=== PATIENT | female | born 1950 | race Caucasian/White ===

== ENCOUNTER → 2017-12-24 09:48 | Outpatient (CLI) | payer OTHER, SELFPAY ==
[2017-12-24 11:52] LABS: Alanine Aminotransferase 39 IU/L (9-52); Albumin 4.4 g/dL (3.5-5.0); Albumin Globulin Ratio 1.7 (1.0-2.8); Alkaline Phosphatase 78 U/L (38-126); Aspartate Aminotransferase 34 IU/L (14-36); BUN Creatinine Ratio 25.6 (6-22); Bilirubin Total 0.6 mg/dL (0.2-1.3); Blood Urea Nitrogen 23 mg/dL (7-17); Calcium 9.2 mg/dL (8.4-10.2); Carbon Dioxide 29 mmol/L (22-32); Chloride 103 mmol/L (98-107); Cholesterol 163 mg/dL (140-199); Estimated Glomerular Filt Rate > 60.0 mL/min (>60); Globulin 2.6 g/dL (1.7-4.1); Glucose 103 mg/dL (80-110); HDL Cholesterol 64 mg/dL (40-60); HEMOLYSIS < 15 (0-50); LDL Cholesterol Calculated 85 mg/dL (<100); Potassium 4.2 mmol/L (3.4-5.1); Sodium 141 mmol/L (137-145); Triglycerides 71 mg/dL (35-150)
[2017-12-24 12:40] LABS: Free T4, Direct Thyroxine 1.07 ng/dL (0.78-2.19)
[2017-12-24 12:54] LABS: Thyroid Stimulating Hormone 3.15 uIU/mL (0.47-4.68)
== END ==
PROVIDERS: Visit Provider Physician Assistant
DX: E78.5 Hyperlipidemia, unspecified (principal); R79.89 Other specified abnormal findings of blood chemistry; Z12.11 Encounter for screening for malignant neoplasm of colon
CPT/HCPCS: 36415; 80053; 80061; 84439; 84443

== ENCOUNTER → 2018-05-09 09:49 | Outpatient (CLI) | payer OTHER, SELFPAY ==
[2018-05-09 10:23] LABS: Add Manual Diff / Slide Review NO; Basophils Percent Auto 0.9 % (0-2); Eosinophils Percent Auto 1.9 % (2-4); Hematocrit 43.7 % (36-46); Hemoglobin 14.8 g/dL (12.0-16.0); Lymphocytes Percent Auto 21.8 % (25-40); Mean Corpuscular HGB Conc 33.9 % (30-36); Mean Corpuscular Hemoglobin 29.4 PG (26-34); Mean Corpuscular Volume 86.9 fL (80-100); Monocytes Percent Auto 10.3 % (3-14); Neutrophils Absolute Auto 4300 /uL (3000-5900); Neutrophils Percent Auto 65.1 % (50-75); Platelet Count 318 X10^3/uL (150-400); Red Blood Cell Count 5.03 X10^6/uL (4.0-5.2); White Blood Cell Count 6.7 X10^3/uL (4.5-11.0)
[2018-05-09 10:30] LABS: HEMOLYSIS < 15 (0-50); Iron 101 ug/dL (37-170)
[2018-05-09 10:41] LABS: Percent Iron Saturation 36 % (15-50); Total Iron Binding Capacity 277 ug/dL (265-497); Transferrin 243 mg/dL (206-381)
[2018-05-09 11:02] LABS: Thyroid Stimulating Hormone 2.69 uIU/mL (0.47-4.68)
[2018-05-09 11:05] LABS: Ferritin 40.3 ng/mL (11.1-264)
[2018-05-11 16:01] LABS: Estradiol < 15 pg/mL
[2018-05-11 16:05] LABS: Progesterone < 0.5 ng/mL
[2018-05-11 17:02] LABS: Fecal Immunochemical Test NOT DETECTED
[2018-05-17 09:28] LABS: Estrogen 132.5 pg/mL
== END ==
PROVIDERS: Visit Provider Physician Assistant
DX: E78.5 Hyperlipidemia, unspecified (principal); G47.00 Insomnia, unspecified; L65.9 Nonscarring hair loss, unspecified; R11.0 Nausea; R53.83 Other fatigue; Z86.2 Personal history of diseases of the blood and blood-forming organs and certain disorders involving the immune mechanism; Z12.11 Encounter for screening for malignant neoplasm of colon
CPT/HCPCS: 36415; 82274; 82670; 82672; 82728; 83540; 83550; 84144; 84443; 85025

== ENCOUNTER → 2018-07-31 09:21 | Outpatient (CLI) | payer OTHER, SELFPAY ==
[2018-07-31 10:21] LABS: Cholesterol 165 mg/dL (140-199); HDL Cholesterol 60 mg/dL (40-60); LDL Cholesterol Calculated 84 mg/dL (<100); Triglycerides 105 mg/dL (35-150)
== END ==
PROVIDERS: PCP Physician Assistant; Visit Provider Physician Assistant
DX: E78.5 Hyperlipidemia, unspecified (principal)
CPT/HCPCS: 36415; 80061

== ENCOUNTER → 2018-09-14 10:53 | Outpatient (CLI) | payer OTHER, SELFPAY ==
--- NOTE | 2018-09-14 | DI.MG.S_ITS ---
BILATERAL DIGITAL SCREENING MAMMOGRAM 3D/2D WITH CAD: 09/14/2018 CLINICAL: Routine screening. Comparison is made to exams dated: 08/24/2017 mammogram - [facility] and 12/30/2016 mammogram - [facility]. There are scattered fibroglandular elements in both breasts. Current study was also evaluated with a Computer Aided Detection (CAD) system. No significant masses, calcifications, or other findings are seen in either breast. There has been no significant interval change. IMPRESSION: NEGATIVE There is no mammographic evidence of malignancy. A 1 year screening mammogram is recommended. This exam was interpreted at Station ID: [id number]. NOTE: For mammograms, a report in lay terms will be sent to the patient. Approximately 15% of breast malignancies will not be visualized mammographically. In the management of a palpable breast mass, a negative mammogram must not discourage biopsy of a clinically suspicious lesion. Electronically Signed By: Lisa quintana/damon:09/20/2018 11:52:17 letter sent: Normal Exam ACR BI-RADS Category 1: Negative 3341F
== END ==
PROVIDERS: PCP Physician Assistant; Visit Provider Physician Assistant
DX: Z12.31 Encounter for screening mammogram for malignant neoplasm of breast (principal)
CPT/HCPCS: 77063; 77067

== ENCOUNTER → 2019-04-14 10:16 | Outpatient (CLI) | payer OTHER, SELFPAY ==
[2019-04-14 12:22] LABS: Alanine Aminotransferase 31 IU/L (<35); Albumin 4.6 g/dL (3.5-5.0); Albumin Globulin Ratio 1.8 (1.0-2.8); Alkaline Phosphatase 93 U/L (38-126); Aspartate Aminotransferase 33 IU/L (14-36); BUN Creatinine Ratio 17.8 (6-22); Bilirubin Total 0.9 mg/dL (0.2-1.3); Blood Urea Nitrogen 16 mg/dL (7-17); Calcium 9.4 mg/dL (8.4-10.2); Carbon Dioxide 29 mmol/L (22-32); Chloride 103 mmol/L (98-107); Cholesterol 164 mg/dL (140-199); Estimated Glomerular Filt Rate > 60.0 mL/min (>60); Globulin 2.6 g/dL (1.7-4.1); Glucose 95 mg/dL (80-110); HDL Cholesterol 59 mg/dL (40-60); HEMOLYSIS 17 (0-50); LDL Cholesterol Calculated 81 mg/dL (<100); Potassium 4.2 mmol/L (3.4-5.1); Sodium 141 mmol/L (137-145); Total Protein 7.2 g/dL (6.3-8.2); Triglycerides 118 mg/dL (35-150)
== END ==
PROVIDERS: PCP Physician Assistant; Visit Provider Physician Assistant
DX: E78.5 Hyperlipidemia, unspecified (principal)
CPT/HCPCS: 36415; 80053; 80061

== ENCOUNTER → 2019-12-17 12:13 | Outpatient (CLI) | payer OTHER, SELFPAY ==
[2019-12-17 13:04] LABS: Add Manual Diff / Slide Review NO; Basophils Absolute Auto 100 /uL (0-100); Basophils Percent Auto 0.8 % (0-2); Eosinophils Absolute Auto 0 /uL (0-450); Eosinophils Percent Auto 0.5 % (2-4); Hematocrit 43.1 % (36-46); Hemoglobin 14.5 g/dL (12.0-16.0); Lymphocytes Absolute Auto 1600 /uL (1100-4500); Mean Corpuscular HGB Conc 33.6 % (30-36); Mean Corpuscular Hemoglobin 29.1 PG (26-34); Mean Corpuscular Volume 86.6 fL (80-100); Monocytes Absolute Auto 700 /uL (0-900); Monocytes Percent Auto 10.3 % (3-14); Neutrophils Absolute Auto 4400 /uL (1500-7000); Neutrophils Percent Auto 64.4 % (50-75); Platelet Count 292 X10^3/uL (150-400); Red Blood Cell Count 4.98 X10^6/uL (4.0-5.2); Red Cell Distribution Width 14.2 % (11.6-14.8); White Blood Cell Count 6.8 X10^3/uL (4.5-11.0)
[2019-12-17 13:17] LABS: Alanine Aminotransferase 24 IU/L (<35); Albumin 4.5 g/dL (3.5-5.0); Albumin Globulin Ratio 1.7 (1.0-2.8); Alkaline Phosphatase 91 U/L (38-126); Amylase 59 U/L (30-110); Aspartate Aminotransferase 30 IU/L (14-36); BUN Creatinine Ratio 17.4 (6-22); Bilirubin Total 0.6 mg/dL (0.2-1.3); Blood Urea Nitrogen 16 mg/dL (7-17); Calcium 9.5 mg/dL (8.4-10.2); Carbon Dioxide 32 mmol/L (22-32); Chloride 103 mmol/L (98-107); Estimated Glomerular Filt Rate > 60.0 mL/min (>60); Globulin 2.7 g/dL (1.7-4.1); Glucose 106 mg/dL (80-110); HEMOLYSIS < 15 (0-50); Lipase 154 U/L (23-300); Potassium 4.1 mmol/L (3.4-5.1); Sodium 139 mmol/L (137-145); Total Protein 7.2 g/dL (6.3-8.2)
[2019-12-17 13:32] LABS: Free T4, Direct Thyroxine 1.27 ng/dL (0.78-2.19)
[2019-12-17 13:46] LABS: Thyroid Stimulating Hormone 1.97 uIU/mL (0.47-4.68)
== END ==
PROVIDERS: PCP Nurse Practitioner; Referring Provider Nurse Practitioner; Visit Provider Nurse Practitioner
DX: R10.9 Unspecified abdominal pain (principal)
CPT/HCPCS: 36415; 80053; 82150; 83690; 84439; 84443; 84481; 85025

== ENCOUNTER → 2019-12-18 09:34 | Outpatient (CLI) | payer OTHER, SELFPAY ==
--- NOTE | 2019-12-18 09:36 | DI.US.S_ITS ---
PROCEDURE: US ABDOMEN COMPLETE INDICATIONS: LUQ PAIN TECHNIQUE: Real-time scanning was performed of the abdominal and retroperitoneal organs, with image documentation. COMPARISON: None. FINDINGS: Liver: Liver is normal in size and homogeneous in echotexture. Gallbladder: Gallbladder is normal in sonographic appearance without gallstones, gallbladder wall thickening, pericholecystic fluid, or abnormal sonographic Haywood's. Biliary ducts: Intrahepatic bile ducts are non-dilated. Extrahepatic bile duct caliber measures 6 mm. Normal is 6-7 mm or less in diameter, or 10 mm or less post-cholecystectomy. Pancreas: Visualized portions of the pancreas are sonographically normal. Spleen: Where visualized, the spleen is normal in size and homogeneous in echotexture. Kidneys: Kidneys are normal in size and echotexture. Right kidney measures 9.8 cm long; left kidney measures 11.0 cm long. No hydronephrosis or nephrolithiasis. There is a complicated right renal cyst in the upper, mid region measuring 1.5 cm in maximum dimension. There is also a similar complicated cyst in the left kidney measuring 1.5 cm in maximum dimension. No solid masses. Aorta: Visualized aorta is normal in caliber at less than 3 cm. Iliacs: Proximal common iliac arteries are normal in caliber at less than 2.5 cm. IVC: Intrahepatic inferior vena cava is patent. Miscellaneous: No free abdominal fluid. IMPRESSION: 1. Abdomen without acute sonographic abnormalities. 2. Complicated renal cysts identified in the bilateral kidneys. Recommend further characterization with contrast enhanced CT or MRI using renal mass protocol. Dictated by: Sam Goldsmith M.D. on 12/18/2019 at 12:16 Approved by: Sam Goldsmith M.D. on 12/18/2019 at 12:19
== END ==
PROVIDERS: PCP Nurse Practitioner; Referring Provider Nurse Practitioner; Visit Provider Nurse Practitioner
DX: R10.12 Left upper quadrant pain (principal); N28.1 Cyst of kidney, acquired
CPT/HCPCS: 76700

== ENCOUNTER → 2020-01-07 14:00 | Outpatient (CLI) | payer OTHER, SELFPAY ==
[2020-01-07 16:37] LABS: BUN Creatinine Ratio 19.8 (6-22); Blood Urea Nitrogen 19 mg/dL (7-17); Calcium 9.5 mg/dL (8.4-10.2); Carbon Dioxide 30 mmol/L (22-32); Chloride 104 mmol/L (98-107); Estimated Glomerular Filt Rate 57.6 mL/min (>60); Glucose 95 mg/dL (80-110); HEMOLYSIS < 15 (0-50); Potassium 4.1 mmol/L (3.4-5.1); Sodium 139 mmol/L (137-145)
== END ==
PROVIDERS: PCP Nurse Practitioner; Referring Provider Nurse Practitioner; Visit Provider Nurse Practitioner
DX: Z01.818 Encounter for other preprocedural examination (principal); N28.1 Cyst of kidney, acquired; R93.429 Abnormal radiologic findings on diagnostic imaging of unspecified kidney
CPT/HCPCS: 36415; 80048

== ENCOUNTER → 2020-01-08 08:49 | Outpatient (CLI) | payer OTHER, SELFPAY ==
--- NOTE | 2020-01-08 08:57 | DI.CT.S_ITS ---
PROCEDURE: CT ABDOMEN WO/W CON INDICATIONS: Cyst of kidney, acquired from ultra sound TECHNIQUE: Optional 5 mm thick noncontrast images acquired from the diaphragm to the iliac crests. After the administration of intravenous contrast, 5 mm thick images again acquired from the diaphragm to the iliac crests in the arterial and urographic phases. 5 mm thick coronal and sagittal reformats were then acquired. For radiation dose reduction, the following was used: automated exposure control, adjustment of mA and/or kV according to patient size. COMPARISON: [facility], , US ABDOMEN COMPLETE, 12/18/2019, 10:00. FINDINGS: Image quality: Excellent. Lung bases: There is minimal dependent atelectasis. Heart size is normal. Genitourinary: There are bilateral thin-walled renal cysts, measuring to 1.6 by 1.2 cm on the right and 1.4 by 1.1 cm on the left. No evidence of internal enhancement or discrete solid nodular components. No enhancing septations. The thin internal septation within the right cyst and the slight mural nodularity within the left cyst seen on prior ultrasound are not discretely visualized on CT. Elsewhere, no discrete renal mass identified. Kidneys demonstrate no hydronephrosis. There is symmetric enhancement bilaterally. The opacified calices are normal in morphology without suspicious filling defects in the renal collecting systems. Other solid organs: Evaluation of the liver demonstrates no focal hepatic lesions. The gallbladder appears within normal limits without calcified gallstones. Biliary system is non-dilated. Pancreas enhances normally. No peripancreatic fat stranding or fluid collections. No pancreatic duct dilatation. The spleen is normal in size. No adrenal nodules. Peritoneum and bowel: Visualized bowel loops are normal in wall thickness and caliber. No free fluid or air. Nodes and vessels: No retroperitoneal or mesenteric adenopathy by size criteria. Aorta and inferior vena cava are normal in caliber. Bones: No suspicious bony lesions. No vertebral body compression fractures. Miscellaneous: No ventral hernias. IMPRESSION: 1. Bilateral renal cysts demonstrate no suspicious features such as internal enhancement, solid nodular components or enhancing septations. Thin internal septation within the right cyst and subtle mural nodularity within the left cyst seen on recent ultrasound are not well visualized on CT. A follow-up ultrasound may be performed in 6 months to demonstrate stability. Dictated by: Chance Santos M.D. on 01/08/2020 at 11:09 Approved by: Chance Santos M.D. on 01/08/2020 at 11:16
== END ==
PROVIDERS: PCP Nurse Practitioner; Referring Provider Nurse Practitioner; Visit Provider Nurse Practitioner
DX: N28.1 Cyst of kidney, acquired (principal)
CPT/HCPCS: 74170; Q9967

== ENCOUNTER → 2020-01-24 16:18 | Outpatient (CLI) | payer OTHER, SELFPAY ==
--- NOTE | 2020-01-24 | DI.MG.S_ITS ---
BILATERAL DIGITAL SCREENING MAMMOGRAM 3D/2D WITH CAD: 01/24/2020 CLINICAL: Routine screening. Comparison is made to exams dated: 09/14/2018 mammogram, 08/24/2017 mammogram - [facility], and 12/30/2016 mammogram - [facility]. There are scattered fibroglandular elements in both breasts. Current study was also evaluated with a Computer Aided Detection (CAD) system. No significant masses, calcifications, or other findings are seen in either breast. There has been no significant interval change. IMPRESSION: NEGATIVE There is no mammographic evidence of malignancy. A 1 year screening mammogram is recommended. This exam was interpreted at Station ID: [id number]. NOTE: For mammograms, a report in lay terms will be sent to the patient. Approximately 15% of breast malignancies will not be visualized mammographically. In the management of a palpable breast mass, a negative mammogram must not discourage biopsy of a clinically suspicious lesion. Electronically Signed By: Sam cruz/damon:01/24/2020 17:17:53 letter sent: Normal Exam ACR BI-RADS Category 1: Negative 3341F
== END ==
PROVIDERS: PCP Nurse Practitioner; Referring Provider Nurse Practitioner; Visit Provider Nurse Practitioner
DX: Z12.31 Encounter for screening mammogram for malignant neoplasm of breast (principal)
CPT/HCPCS: 77063; 77067

== ENCOUNTER → 2020-05-21 10:27 | Outpatient (CLI) | payer OTHER, SELFPAY ==
[2020-05-21 11:48] LABS: Cholesterol 167 mg/dL (140-199); HDL Cholesterol 77 mg/dL (40-60); LDL Cholesterol Calculated 77 mg/dL (<100); Triglycerides 65 mg/dL (35-150)
== END ==
PROVIDERS: PCP Nurse Practitioner; Referring Provider Nurse Practitioner; Visit Provider Nurse Practitioner
DX: E78.5 Hyperlipidemia, unspecified (principal); Z79.899 Other long term (current) drug therapy
CPT/HCPCS: 36415; 80061

== ENCOUNTER → 2020-06-20 16:10 | Outpatient (CLI) | payer OTHER, SELFPAY ==
--- NOTE | 2020-06-20 16:12 | DI.US.S_ITS ---
PROCEDURE: US RENAL COMPLETE INDICATIONS: Kidney cyst TECHNIQUE: Real-time scanning was performed of the kidneys and bladder, with image documentation. COMPARISON: [facility], US, US ABDOMEN COMPLETE, 12/18/2019, 10:00. [facility], CT, CT ABDOMEN WO/W CON, 01/08/2020, 8:52. FINDINGS: Kidneys: Kidneys are normal in size. Right kidney measures 10.9 cm long; left kidney measures 11.4 cm long. Right renal cortical thickness is 1.0 cm; left renal cortical thickness is 1.6 cm. Renal cortical echotexture is normal. No hydronephrosis or nephrolithiasis. No suspicious solid mass lesions. A cyst in the right superior pole measures 1.7 x 1.4 x 1.5 cm, previously measuring 1.4 x 1.5 x 1.5 cm on the exam from 12/18/2019. A cyst in the superior pole of the left kidney measures 1.3 x 1.5 x 1.1 cm, previously 1.5 x 1.3 x 1.4 cm. A small hyperechoic focus in the superior pole of the left kidney measuring up to 6 mm in size does not have a definite correlate on prior CT or ultrasound in may represent prominent renal sinus fat there is a small nonshadowing calculus. Bladder: Pre-void bladder volume is 290 mL. Post-void residual is fifteen mL. Pre-void images demonstrate no intraluminal masses or stones. On pre-void images, bilateral ureteral jets are noted with color Doppler interrogation. (Of note, ureteral jets may not be detectable in up to 25% of cases due to insufficient differences in specific gravity between ureteral and bladder urine). Miscellaneous: No free pelvic fluid. IMPRESSION: Bilateral renal cysts have not significantly changed in size. No hydronephrosis. Dictated by: Dane Parra M.D. on 06/20/2020 at 18:12 Approved by: Dane Parra M.D. on 06/20/2020 at 18:17
== END ==
PROVIDERS: PCP Nurse Practitioner; Referring Provider Nurse Practitioner; Visit Provider Nurse Practitioner
DX: N28.1 Cyst of kidney, acquired (principal)
CPT/HCPCS: 76770

== ENCOUNTER → 2021-03-13 16:14 | Outpatient (CLI) | payer OTHER, SELFPAY ==
[2021-03-13 17:48] LABS: Free T3, Triiodothyronine Free 3.17 pg/mL (2.77-5.27); Free T4, Direct Thyroxine 1.08 ng/dL (0.78-2.19)
[2021-03-13 18:02] LABS: Thyroid Stimulating Hormone 2.04 uIU/mL (0.47-4.68)
== END ==
PROVIDERS: PCP Nurse Practitioner; Referring Provider Nurse Practitioner; Visit Provider Nurse Practitioner
DX: E78.5 Hyperlipidemia, unspecified (principal); R53.83 Other fatigue
CPT/HCPCS: 36415; 84439; 84443; 84481

== ENCOUNTER → 2021-05-23 09:30 | Outpatient (CLI) | payer OTHER, SELFPAY ==
[2021-05-23 12:59] LABS: Alanine Aminotransferase 38 IU/L (<35); Albumin 4.4 g/dL (3.5-5.0); Albumin Globulin Ratio 1.8 (1.0-2.8); Alkaline Phosphatase 75 U/L (38-126); Aspartate Aminotransferase 39 IU/L (14-36); BUN Creatinine Ratio 16.7 (6-22); Bilirubin Total 0.6 mg/dL (0.2-1.3); Blood Urea Nitrogen 16 mg/dL (7-17); Calcium 9.4 mg/dL (8.4-10.2); Carbon Dioxide 23 mmol/L (22-32); Chloride 109 mmol/L (98-107); Cholesterol 159 mg/dL (140-199); Estimated Glomerular Filt Rate 57.3 mL/min (>60); Globulin 2.4 g/dL (1.7-4.1); Glucose 96 mg/dL (80-110); HDL Cholesterol 70 mg/dL (40-60); LDL Cholesterol Calculated 73 mg/dL (<100); Potassium 4.6 mmol/L (3.4-5.1); Sodium 140 mmol/L (137-145); Total Protein 6.8 g/dL (6.3-8.2); Triglycerides 80 mg/dL (35-150)
[2021-05-23 13:06] LABS: HEMOLYSIS 54 (0-50)
[2021-05-25 18:53] LABS: Hep C Virus Ab w/Reflex Quant NEGATIVE s/c (NEGATIVE)
== END ==
PROVIDERS: PCP Nurse Practitioner; Referring Provider Nurse Practitioner; Visit Provider Nurse Practitioner
DX: E78.5 Hyperlipidemia, unspecified (principal); Z79.899 Other long term (current) drug therapy; Z11.59 Encounter for screening for other viral diseases; Z91.89 Other specified personal risk factors, not elsewhere classified
CPT/HCPCS: 36415; 80053; 80061; 86803

== ENCOUNTER → 2021-07-01 16:36 | Outpatient (CLI) | payer OTHER, SELFPAY ==
[2021-07-01 17:47] LABS: Appearance Urine UA SL CLOUDY; Bilirubin Urine UA NEGATIVE (NEGATIVE); Color Urine UA YELLOW; Glucose Urine UA NEGATIVE (Negative); Ketones Urine UA NEGATIVE (NEGATIVE); Leukocyte Esterase Urine UA TRACE (NEGATIVE); Nitrite Urine UA NEGATIVE (Negative); Occult Blood Urine UA NEGATIVE (Negative); Protein Urine UA NEGATIVE (Negative); Specific Gravity Urine UA 1.015 (1.000-1.035); Urobilinogen Urine UA 0.2 E.U./dL (0.2)
[2021-07-01 17:48] LABS: pH Urine UA 6.5 (4.5-8.0)
[2021-07-01 17:54] LABS: Bacteria Urine None Seen; Culture Indicated Urine Cult Not Indicated; RBC Urine None Seen (0-5/HPF); Squamous Epithelial Cell Urine 5-10 /HPF (0-5/HPF); WBC Urine 5-10/HPF (0-5/HPF)
== END ==
PROVIDERS: PCP Nurse Practitioner; Referring Provider Nurse Practitioner; Visit Provider Nurse Practitioner
DX: R32 Unspecified urinary incontinence (principal); R39.15 Urgency of urination
CPT/HCPCS: 81001

== ENCOUNTER → 2021-08-12 12:16 | Outpatient (CLI) | payer OTHER, SELFPAY ==
--- NOTE | 2021-08-12 12:18 | DI.US.S_ITS ---
PROCEDURE: US RENAL COMPLETE INDICATIONS: pain TECHNIQUE: Real-time scanning was performed of the kidneys and bladder, with image documentation. COMPARISON: US, US ABDOMEN COMPLETE, 12/18/2019, 10:00. [facility], US, US RENAL COMPLETE, 06/20/2020, 16:42. FINDINGS: Kidneys: Kidneys are normal in size. Right kidney measures 11.6 cm long; left kidney measures 12.2 cm long. Right renal cortical thickness is 1.6 cm; left renal cortical thickness is 1.7 cm. Renal cortical echotexture is normal. No hydronephrosis or nephrolithiasis. No suspicious solid mass lesions. 1.4 x 1.4 x 1.6 centimeter cyst noted in the right kidney which is not significantly changed compared to prior examinations. 1.2 x 1.3 x 1.4 centimeter cyst noted in the left kidney which is not significantly changed compared to prior examination. Small echogenic lesion in the superior pole of left kidney is stable compared to prior examinations may represent a small nonshadowing renal stone or renal sinus fat. Bladder: Pre-void bladder volume is 73 mL. Post-void residual is 0 mL. Pre-void images demonstrate no intraluminal masses or stones. On pre-void images, both the right and left ureteral jets are noted with color Doppler interrogation. (Of note, ureteral jets may not be detectable in up to 25% of cases due to insufficient differences in specific gravity between ureteral and bladder urine). Miscellaneous: No free pelvic fluid. IMPRESSION: 1. Stable examination compared to June 20, 2020. 2. No hydronephrosis. 3. Bilateral renal cysts. Dictated by: Jennifer Serrato MD, PhD on 08/12/2021 at 17:34 Approved by: Jennifer Serrato MD, PhD on 08/12/2021 at 17:37
== END ==
PROVIDERS: PCP Nurse Practitioner; Referring Provider Nurse Practitioner; Visit Provider Nurse Practitioner
DX: N28.1 Cyst of kidney, acquired (principal)
CPT/HCPCS: 76770

== ENCOUNTER → 2021-08-26 17:20 | Outpatient (CLI) | payer OTHER, SELFPAY ==
--- NOTE | 2021-08-26 17:21 | DI.MG.S_ITS ---
BILATERAL DIGITAL SCREENING MAMMOGRAM 3D/2D WITH CAD: 08/26/2021 CLINICAL: Routine screening. Comparison is made to exams dated: 01/24/2020 mammogram, 09/14/2018 mammogram, and 08/24/2017 mammogram - [facility]. There are scattered fibroglandular elements in both breasts. Current study was also evaluated with a Computer Aided Detection (CAD) system. No significant masses, calcifications, or other findings are seen in either breast. There has been no significant interval change. IMPRESSION: NEGATIVE There is no mammographic evidence of malignancy. A 1 year screening mammogram is recommended. This exam was interpreted at Station ID: [id number]. NOTE: For mammograms, a report in lay terms will be sent to the patient. Approximately 15% of breast malignancies will not be visualized mammographically. In the management of a palpable breast mass, a negative mammogram must not discourage biopsy of a clinically suspicious lesion. Electronically Signed By: Dane blackmon/damon:08/27/2021 08:55:11 letter sent: Normal Exam ACR BI-RADS Category 1: Negative 3341F
== END ==
PROVIDERS: PCP Nurse Practitioner; Referring Provider Nurse Practitioner; Visit Provider Nurse Practitioner
DX: Z12.31 Encounter for screening mammogram for malignant neoplasm of breast (principal)
CPT/HCPCS: 77063; 77067

== ENCOUNTER → 2021-11-25 16:36 | Outpatient (CLI) | payer OTHER, SELFPAY ==
--- NOTE | 2021-11-25 16:37 | DI.RAD.S_ITS ---
PROCEDURE: XR KNEE RT 3V INDICATIONS: right knee pain and edema TECHNIQUE: 3 views of the knee were acquired. COMPARISON: None. FINDINGS: Bones: No fractures or dislocations. No suspicious bony lesions. Moderate osteoarthritic changes, most pronounced at the medial femorotibial joint. Soft tissues: Small joint effusion is suspected. No suspicious soft tissue calcifications. IMPRESSION: Moderate osteoarthritis. Small knee joint effusion. Dictated by: Hung Caldwell M.D. on 11/26/2021 at 12:34 Approved by: Hung Caldwell M.D. on 11/26/2021 at 12:35
== END ==
PROVIDERS: PCP Nurse Practitioner; Referring Provider Nurse Practitioner; Visit Provider Nurse Practitioner
DX: M25.561 Pain in right knee (principal); M25.461 Effusion, right knee; M17.11 Unilateral primary osteoarthritis, right knee
CPT/HCPCS: 73562

== ENCOUNTER → 2022-02-19 17:13 | Outpatient (CLI) | payer OTHER, SELFPAY ==
--- NOTE | 2022-02-19 17:16 | DI.MRI.S_ITS ---
PROCEDURE: MR KNEE RT WO CON INDICATIONS: Knee pain TECHNIQUE: Noncontrast sagittal PD fast spin echo and T2 fast spin echo with fat saturation, sagittal 3-D FLASH with fat saturation; coronal T1 spin echo and PD fast spin echo with fat saturation, and axial PD fast spin echo with fat saturation through the knee. COMPARISON: None. FINDINGS: Image quality: Excellent. Menisci: Complex tear involving body and posterior horn of medial meniscus is seen extending to superior and inferior articulating surfaces. There is peripheral displacement of medial meniscus bowing medial collateral ligament. Lateral meniscus is intact. The meniscal root ligaments appear intact. Cruciate ligaments: The anterior and posterior cruciate ligaments appear intact. Medial structures: Low to moderate grade MCL sprain/partial-thickness tear is seen. The posterior oblique ligament, semimembranosus tendon insertions, oblique popliteal ligament, and meniscocapsular junction appear intact. Visualized portions of the pes anserinus tendons appear normal. No abnormal bursal fluid. Lateral structures: The lateral collateral ligament, long and short heads of the biceps femoris tendon appear intact. The popliteus tendon appears normal; the popliteofibular ligament appears intact. Iliotibial band appears normal. Anterior structures: The quadriceps and patellar tendons appear intact. Patellar alignment is normal. No femoral trochlear dysplasia or ventral trochlear prominence. No edema in the infrapatellar fat pad. Bones and cartilage: No fracture or dislocation. Moderate tricompartmental osteoarthritis and chondromalacia is seen most prominent involving medial femoral tibial compartment with significant joint space narrowing, subchondral sclerosis and edema and marginal osteophyte formation. Joint space: There is large amount of joint fluid, no gross intra-articular loose bodies. No Peterson's cyst. Normal appearing synovial plicae are incidentally noted. IMPRESSION: 1. Moderate tricompartmental osteoarthritis and chondromalacia most prominent in medial femoral tibial compartment. No fracture or dislocation. Large joint effusion, no gross loose bodies. 2. Complex tear involving body and posterior horn of medial meniscus extending to both superior and inferior articulating surfaces. Peripheral displacement of medial meniscus bowing medial collateral ligament. No lateral meniscal tear. 3. Cruciate ligaments are intact. 4. Low to moderate grade MCL sprain/partial-thickness tear. Dictated by: Andrey Loyd M.D. on 02/22/2022 at 9:44 Approved by: Andrey Loyd M.D. on 02/22/2022 at 9:47
== END ==
PROVIDERS: PCP Nurse Practitioner; Referring Provider Orthopaedic Surgery Foot and Ankle Surgery; Visit Provider Orthopaedic Surgery Foot and Ankle Surgery
DX: M23.91 Unspecified internal derangement of right knee (principal); M17.11 Unilateral primary osteoarthritis, right knee; M94.261 Chondromalacia, right knee; M25.461 Effusion, right knee; S83.241A Other tear of medial meniscus, current injury, right knee, initial encounter; S83.411A Sprain of medial collateral ligament of right knee, initial encounter
CPT/HCPCS: 73721

== ENCOUNTER → 2022-04-28 17:29 | Outpatient (CLI) | payer OTHER, SELFPAY | PROVIDERS: PCP Nurse Practitioner; Visit Provider Nurse Practitioner | DX: N89.8 Other specified noninflammatory disorders of vagina (principal) | CPT/HCPCS: 87070; 87205 ==

== ENCOUNTER → 2022-05-29 09:52 | Outpatient (CLI) | payer OTHER, SELFPAY ==
[2022-05-29 11:38] LABS: Add Manual Diff / Slide Review NO; Basophils Absolute Auto 100 /uL (0-100); Basophils Percent Auto 0.8 % (0-2); Eosinophils Absolute Auto 200 /uL (0-450); Eosinophils Percent Auto 2.8 % (2-4); Hematocrit 42.3 % (36-46); Hemoglobin 14.2 g/dL (12.0-16.0); Lymphocytes Absolute Auto 1900 /uL (1100-4500); Lymphocytes Percent Auto 26.1 % (25-40); Mean Corpuscular HGB Conc 33.6 % (30-36); Mean Corpuscular Hemoglobin 28.7 PG (26-34); Mean Corpuscular Volume 85.3 fL (80-100); Monocytes Absolute Auto 900 /uL (0-900); Monocytes Percent Auto 11.8 % (3-14); Neutrophils Absolute Auto 4200 /uL (1500-7000); Neutrophils Percent Auto 58.5 % (50-75); Platelet Count 320 X10^3/uL (150-400); Red Blood Cell Count 4.95 X10^6/uL (4.0-5.2); Red Cell Distribution Width 14.7 % (11.6-14.8); White Blood Cell Count 7.2 X10^3/uL (4.5-11.0)
[2022-05-29 11:46] LABS: Alanine Aminotransferase 34 IU/L (<35); Albumin 4.2 g/dL (3.5-5.0); Albumin Globulin Ratio 1.5 (1.0-2.8); Alkaline Phosphatase 94 U/L (38-126); Aspartate Aminotransferase 40 IU/L (14-36); BUN Creatinine Ratio 18.5 (6-22); Bilirubin Total 0.9 mg/dL (0.2-1.3); Blood Urea Nitrogen 15 mg/dL (7-17); Calcium 8.8 mg/dL (8.4-10.2); Carbon Dioxide 29 mmol/L (22-32); Chloride 103 mmol/L (98-107); Cholesterol 183 mg/dL (140-199); Estimated Glomerular Filt Rate > 60 mL/min (>60); Globulin 2.8 g/dL (1.7-4.1); Glucose 87 mg/dL (80-110); HDL Cholesterol 60 mg/dL (40-60); HEMOLYSIS 24 (0-50); LDL Cholesterol Calculated 100 mg/dL (<100); Potassium 4.5 mmol/L (3.4-5.1); Sodium 138 mmol/L (137-145); Triglycerides 117 mg/dL (35-150)
[2022-05-29 12:02] LABS: Free T3, Triiodothyronine Free 3.39 pg/mL (2.77-5.27); Free T4, Direct Thyroxine 1.25 ng/dL (0.78-2.19)
[2022-05-29 12:16] LABS: Thyroid Stimulating Hormone 0.061 uIU/mL (0.47-4.68)
[2022-05-29 12:18] LABS: Cancer Antigen 125 < 5.5 U/mL (0-35)
== END ==
PROVIDERS: PCP Nurse Practitioner; Referring Provider Nurse Practitioner; Visit Provider Nurse Practitioner
DX: Z00.00 Encounter for general adult medical examination without abnormal findings (principal); N89.8 Other specified noninflammatory disorders of vagina
CPT/HCPCS: 36415; 80053; 80061; 84439; 84443; 84481; 85025; 86304

== ENCOUNTER → 2022-06-10 12:35 | Outpatient (CLI) | payer OTHER, SELFPAY ==
--- NOTE | 2022-06-10 12:38 | DI.US.S_ITS ---
PROCEDURE: US PELVIC COMPLETE INDICATIONS: PELVIC MASS POSTERIOR VAGINAL WALL ?VAGINAL OR RECTAL MASS TECHNIQUE: Real-time scanning was performed of the pelvic organs, with image documentation. Additional endovaginal scanning was necessary due to incomplete visualization of the adnexal and endometrial structures by transabdominal scanning. COMPARISON: None. FINDINGS: Uterus: Uterus is anteverted and normal in size at 6.9 x 3.2 x 3.0 cm. The myometrium is heterogeneous. The endometrium measures 2 mm combined thickness. In the anterior, mid uterine fundus, there is a heterogeneous, nonvascular lesion with calcifications measuring 1.7 x 2.1 x 1.4 cm. This may represent an involuting uterine fibroid. There is a thickened cervical canal with increased vascularity. No definite cervical canal mass or abnormal fluid collection seen. The vaginal canal is not well visualized. However, no gross abnormalities identified during insertion or removal of the transvaginal probe. Ovaries: Patient reports left ovary has been surgically removed. Right ovary measures 3.6 x 2.8 x 2.4 cm. Right ovarian volume measures 12.4 mL. Less than 12 follicles are seen. No suspicious adnexal/ovarian mass lesion. Other: No pathologic free abdominal or pelvic fluid. IMPRESSION: 1. The vaginal canal is not well visualized on this examination. No gross abnormalities or mass lesions identified. 2. There is a 1.7 cm x 2.1 cm x 1.4 cm heterogeneous, nonvascular lesion within the anterior mid uterine fundus with associated coarse calcifications. This likely represents an involuting fibroid. 3. Nonspecific thickening of the cervical canal with increased vascularity. Consider further evaluation with direct visualization. 4. Left ovary is not visualized. Patient reports that this was surgically removed. Recommend confirmation with past surgical history. We strive to produce accurate, complete, and clear reports of imaging services. To assist us in improving patient care, this report was composed using standard report templates and voice recognition software. Therefore, it may contain abnormal punctuation, insertions and/or omissions. Occasional wrong-word or sound-alike substitutions may occur. Though we review the report and make efforts to correct it, we do recommend that the report be read carefully in proper context to recognize any text inaccuracies. Dictated by: Sam Goldsmith M.D. on 06/10/2022 at 14:11 Approved by: Sam Goldsmith M.D. on 06/10/2022 at 14:18
[2022-06-11 11:36] LABS: Fecal Immunochemical Test Negative (Negative)
== END ==
PROVIDERS: PCP Nurse Practitioner; Referring Provider Nurse Practitioner; Visit Provider Nurse Practitioner
DX: Z12.11 Encounter for screening for malignant neoplasm of colon (principal); R19.00 Intra-abdominal and pelvic swelling, mass and lump, unspecified site; N85.9 Noninflammatory disorder of uterus, unspecified
CPT/HCPCS: 76830; 76856; 82274

== ENCOUNTER → 2023-02-07 11:32 | Outpatient (CLI) | payer OTHER, SELFPAY ==
--- NOTE | 2023-02-07 | DI.MG.S_ITS ---
BILATERAL DIGITAL SCREENING MAMMOGRAM 3D/2D WITH CAD: 02/07/2023 CLINICAL: Routine screening. Comparison is made to exams dated: 08/26/2021 mammogram, 01/24/2020 mammogram, 09/14/2018 mammogram, and 08/24/2017 mammogram - [facility]. Both breasts are heterogeneously dense, which may obscure small masses (category c / 51-75% glandular tissue). Current study was also evaluated with a Computer Aided Detection (CAD) system. No significant masses, calcifications, or other findings are seen in either breast. There has been no significant interval change. IMPRESSION: NEGATIVE There is no mammographic evidence of malignancy. A 1 year screening mammogram is recommended. Based on the Tyrer Cuzick model (a risk assessment model) the patient's lifetime risk is 8.7% and her 10 year risk is 6.5%. According to the ACR, ACS, and NCCN guidelines, an annual breast MRI exam along with mammogram is recommended if the patient's lifetime risk is 20% or greater. This exam was interpreted at Station ID: [id number]. NOTE: For mammograms, a report in lay terms will be sent to the patient. Approximately 15% of breast malignancies will not be visualized mammographically. In the management of a palpable breast mass, a negative mammogram must not discourage biopsy of a clinically suspicious lesion. Electronically Signed By: Jono castro/damon:02/07/2023 12:14:40 letter sent: Normal Exam ACR BI-RADS Category 1: Negative 3341F
== END ==
PROVIDERS: PCP Nurse Practitioner; Referring Provider Nurse Practitioner; Visit Provider Nurse Practitioner
DX: Z12.31 Encounter for screening mammogram for malignant neoplasm of breast (principal)
CPT/HCPCS: 77063; 77067

== ENCOUNTER → 2023-07-30 10:03 | Outpatient (CLI) | payer MEDICARE, BC, SELFPAY ==
[2023-07-30 11:41] LABS: Alanine Aminotransferase 23 IU/L (<35); Albumin 4.4 g/dL (3.5-5.0); Albumin Globulin Ratio 1.4 (1.0-2.8); Alkaline Phosphatase 83 U/L (38-126); Aspartate Aminotransferase 28 IU/L (14-36); BUN Creatinine Ratio 17.9 (6-22); Bilirubin Total 0.8 mg/dL (0.2-1.3); Blood Urea Nitrogen 17 mg/dL (7-17); Calcium 9.2 mg/dL (8.4-10.2); Carbon Dioxide 26 mmol/L (22-32); Chloride 108 mmol/L (98-107); Cholesterol 162 mg/dL (140-199); Estimated Glomerular Filt Rate > 60 mL/min (>60); Globulin 3.1 g/dL (1.7-4.1); Glucose 96 mg/dL (80-110); HDL Cholesterol 63 mg/dL (40-60); HEMOLYSIS < 15 (0-50); LDL Cholesterol Calculated 77 mg/dL (<100); Potassium 4.4 mmol/L (3.4-5.1); Sodium 143 mmol/L (137-145); Total Protein 7.5 g/dL (6.3-8.2); Triglycerides 112 mg/dL (35-150)
[2023-07-30 12:42] LABS: Free T3, Triiodothyronine Free 3.54 pg/mL (2.77-5.27); Free T4, Direct Thyroxine 1.26 ng/dL (0.78-2.19)
[2023-07-30 12:56] LABS: Thyroid Stimulating Hormone 1.35 uIU/mL (0.47-4.68)
[2023-07-30 14:52] LABS: Creatinine Urine Random 209.9 mg/dL
[2023-07-30 14:53] LABS: Microalbumi Creatinin Ratio Ur 8.5 ug/mg CR (<30); Microalbumin Urine Random 1.8 mg/dL (0-1.6)
== END ==
LOC: LAB 10:11
PROVIDERS: PCP Nurse Practitioner; Referring Provider Nurse Practitioner; Visit Provider Nurse Practitioner
DX: I10 Essential (primary) hypertension (principal); G47.00 Insomnia, unspecified; L65.9 Nonscarring hair loss, unspecified; Z79.899 Other long term (current) drug therapy; E78.5 Hyperlipidemia, unspecified
CPT/HCPCS: 36415; 80053; 80061; 82043; 82570; 84439; 84443; 84481

== ENCOUNTER → 2023-10-10 09:24 | Outpatient (CLI) | payer MEDICARE, BC, SELFPAY | PROVIDERS: PCP Nurse Practitioner; Visit Provider Nurse Practitioner Family | DX: R39.9 Unspecified symptoms and signs involving the genitourinary system (principal); N89.8 Other specified noninflammatory disorders of vagina | CPT/HCPCS: 87086; 87210 ==

== ENCOUNTER → 2024-11-06 07:54 | Outpatient (CLI) | payer MEDICARE, BC, SELFPAY ==
[2024-11-06 08:23] LABS: Hematocrit 42.3 % (36-46); Hemoglobin 14.4 g/dL (12.0-16.0); Mean Corpuscular Hemoglobin 29.5 PG (26-34); Mean Corpuscular Volume 86.8 fL (80-100); Platelet Count 286 X10^3/uL (150-400); Red Blood Cell Count 4.88 X10^6/uL (4.0-5.2); Red Cell Distribution Width 14.5 % (11.6-14.8); White Blood Cell Count 6.8 X10^3/uL (4.5-11.0)
[2024-11-06 08:42] LABS: BUN Creatinine Ratio 17.8 (6-22); Blood Urea Nitrogen 18 mg/dL (7-17); Calcium 9.2 mg/dL (8.4-10.2); Carbon Dioxide 29 mmol/L (22-32); Chloride 105 mmol/L (98-107); Cholesterol 168 mg/dL (140-199); Estimated Glomerular Filt Rate 58 mL/min (>60); Glucose 100 mg/dL (70-99); HDL Cholesterol 68 mg/dL (40-60); HEMOLYSIS < 15 (0-50); LDL Cholesterol Calculated 74 mg/dL (<100); Potassium 4.1 mmol/L (3.4-5.1); Sodium 139 mmol/L (137-145); Triglycerides 129 mg/dL (35-150)
== END ==
PROVIDERS: PCP Nurse Practitioner Family; Referring Provider Nurse Practitioner Family; Visit Provider Nurse Practitioner Family
DX: I10 Essential (primary) hypertension (principal); E78.5 Hyperlipidemia, unspecified
CPT/HCPCS: 36415; 80048; 80061; 85027

== ENCOUNTER → 2024-12-06 13:10 | Outpatient (CLI) | payer MEDICARE, BC, SELFPAY | PROVIDERS: PCP Nurse Practitioner Family; Referring Provider Nurse Practitioner Family; Visit Provider Nurse Practitioner Family | DX: Z12.11 Encounter for screening for malignant neoplasm of colon (principal) | CPT/HCPCS: 82274 ==

== ENCOUNTER → 2025-01-01 09:54 | Outpatient (CLI) | payer MEDICARE, BC, SELFPAY ==
--- NOTE | 2025-01-01 09:55 | DI.MG.S_ITS ---
MM screening mammo BI: 01/01/2025. BI-RADS: 1 CLINICAL: 74-year old female for bilateral screening mammogram. Tyrer-Cuzick lifetime risk of 4.7%. No personal or first-degree family history of breast cancer. The patient had a prior right breast biopsy. PRIOR EXAMS 02/07/2023, 08/26/2021, 01/24/2020, 09/14/2018. MAMMOGRAPHY TECHNIQUE: 2D and 3D (tomosynthesis) digital mammographic views obtained, with additional images as needed for full coverage. Current study was also evaluated with a Computer Aided Detection (CAD) system. DENSITY B. There are scattered areas of fibroglandular density. MAMMOGRAPHY FINDINGS Bilateral: No suspicious mass, asymmetry, microcalcification, or other abnormality seen. No significant change from comparison. IMPRESSION: * No evidence of malignancy. RECOMMENDATIONS Bilateral * Annual screening mammography. OVERALL ASSESSMENT CATEGORY BI-RADS-1: Negative. The [employer] recommends annual screening mammography beginning at age 40 for women with average risk of breast cancer. ELECTRONICALLY SIGNED: Roz Rubin M.D. on 01/01/2025 at 04:40:19 PM PT Interpreting Station ID: [id number]
== END ==
LOC: MAMMO 09:54
PROVIDERS: PCP Nurse Practitioner Family; Referring Provider Nurse Practitioner Family; Visit Provider Nurse Practitioner Family
DX: Z12.31 Encounter for screening mammogram for malignant neoplasm of breast (principal)
CPT/HCPCS: 77063; 77067